=== PATIENT | female | born 1960 | race Asian ===

== ENCOUNTER 2017-12-21 22:36 | Emergency (ER) | payer OTHER ==
[~2017-12-21] VITALS: Ht 152.4 cm; Wt 47.7 kg
[2017-12-21 22:44] VITALS: BP 129/86
[2017-12-21 22:45] VITALS: TEMP 98.3
[2017-12-21] MEDS ORDERED: CHOLESTEROL MED (23:07)
[2017-12-21 23:37] LABS: BASO % 0.5 % (0.0-2.0); EOS # 0.2 (0.0-0.7); EOS % 2.6 % (0-4.0); GRAN # 3.8 (1.4-6.5); GRAN % 58.3 % (42.2-75.2); HEMATOCRIT 39.6 % (37.0-47.0); HEMOGLOBIN 13.4 g/dl (12.5-16.0); LYMPH % 30.1 % (20.0-51.0); MEAN CELL VOLUME 88 fl (80.0-100.0); MEAN CORPUSCULAR HEMOGLOBIN 30 pg (27.0-31.0); MEAN CORPUSCULAR HGB CONC 34 g/dl (33.0-37.0); MEAN PLATELET VOLUME 9.8 fl (7.4-10.4); MONO # 0.5 (0.1-0.6); MONO % 8.3 % (1.7-9.3); PLATELET COUNT 250 K/mm3 (130-400); REDCELL DISTRIBUTION WIDTH-CV 12.8 % (11.5-14.5)
[2017-12-21 23:44] LABS: ALANINE AMINOTRANSFERASE 60 U/L (9-52); ALBUMIN 4.5 gm/dL (3.5-5.0); ALKALINE PHOSPHATASE 57 U/L (50-136); ANION GAP 11 mmol/L (7-16); AST,SGOT 49 U/L (15-37); BILIRUBIN,TOTAL 0.1 mg/dL (0.0-1.0); BLOOD UREA NITROGEN 22 mg/dL (7-17); CALCIUM 9.8 mg/dL (8.4-10.2); CARBON DIOXIDE 29 mmol/L (22-30); CHLORIDE 97 mmol/L (98-107); GLUCOSE 105 mg/dL (74-106); LIPASE 56 U/L (23-300); SODIUM 137 mmol/L (137-145); TOTAL PROTEIN 7.6 gm/dL (6.4-8.2)
[2017-12-21 23:57] LABS: TROPONIN-I < 0.012 ng/mL (0.000-0.034)
[2017-12-22 01:25] VITALS: PULSE 76
== END 2017-12-22 01:25 | disposition home or self-care (01) ==
LOC: COL.ER 22:36
PROVIDERS: Emergency Medicine
DX: R07.89 Other chest pain (principal)
CPT/HCPCS: J2405; J7030